=== PATIENT | female | born 1995 | race Two or more races ===

== ENCOUNTER 2020-11-15 06:25 | Inpatient (IN) | payer OTHER ==
[~2020-11-15] VITALS: Ht 152.4 cm; Wt 81.6 kg
[~2020-11-15 06:25] MED LIST: IRON325 MG PO; PRENATAL TABLE1 EAC1 PO
== END 2020-11-17 13:14 | disposition home or self-care (01) | DRG 807 ==
LOC: LDR 06:25 → OB/GYN 06:25
PROVIDERS: ADMIT Specialist; ATTEND Specialist
PROC: 10E0XZZ Delivery of Products of Conception, External Approach (ICD-10-PCS; principal; 2020-11-15)
PROC: 4A1HXFZ Monitoring of Products of Conception, Cardiac Rhythm, External Approach (ICD-10-PCS; 2020-11-15)
DX: O80 Encounter for full-term uncomplicated delivery (principal); Z37.0 Single live birth; Z3A.38 38 weeks gestation of pregnancy; Z20.822 Contact with and (suspected) exposure to COVID-19

== ENCOUNTER 2021-12-24 13:47 | Inpatient (IN) | payer OTHER ==
[~2021-12-24] VITALS: Ht 152.4 cm; Wt 87.5 kg
[2021-12-24] MEDS ORDERED: PRENATAL TABLE1 EAC3 (15:55)
== END 2021-12-26 12:37 | disposition home or self-care (01) | DRG 807 ==
LOC: LDR 13:47 → OB/GYN 16:26
PROVIDERS: ADMIT Obstetrics & Gynecology Obstetrics; ATTEND Obstetrics & Gynecology Obstetrics
PROC: 10E0XZZ Delivery of Products of Conception, External Approach (ICD-10-PCS; principal; 2021-12-24)
PROC: 0W8NXZZ Division of Female Perineum, External Approach (ICD-10-PCS; 2021-12-24)
PROC: 4A1HXCZ Monitoring of Products of Conception, Cardiac Rate, External Approach (ICD-10-PCS; 2021-12-24)
DX: O80 Encounter for full-term uncomplicated delivery (principal); Z37.0 Single live birth; Z3A.39 39 weeks gestation of pregnancy; Z20.822 Contact with and (suspected) exposure to COVID-19